=== PATIENT | female | born 1995 | race Caucasian/White ===

== ENCOUNTER 2024-05-27 07:40 | Inpatient (IN) ==
[2024-05-27] MEDS ORDERED: OXYTOCIN 30 UNITS/NSS 30 UNITS/500 ML BAG IV PRN (08:24)
[2024-05-27] MEDS ORDERED: LIDOCAINE 1% LOCAL 20 ML VIAL INFIL PRN (08:24)
[2024-05-27 09:00] LABS: Hematocrit (blood only) 36.8 % (37.0-47.0); Hemoglobin 12.5 g/dl (12.0-16.0); Mean Corpuscular Hemoglobin 30.6 pg (25.0-34.0); Mean Corpuscular Volume 90.2 fL (80.0-100.0); Mean Platelet Volume 8.7 fL (9.4-12.4); Platelet Count 281 K/uL (130-400); RDW Coefficient of Variation 13.1 % (11.5-14.5); Red Blood Count 4.08 M/uL (4.20-5.40); White Blood Count 9.15 K/ul (4.8-10.8)
[2024-05-27] MEDS ORDERED: SODIUM CHLORIDE 0.9% 1,000 ML IV PRN (09:07)
[2024-05-27] MEDS ORDERED: INSULIN REGULAR 250 UNITS in SODIUM CHLORIDE 0.9% 247.5 ML IV PRN (09:07)
[2024-05-27] MEDS ORDERED: DEXTROSE 50% 50 ML SYRINGE IV PRN (09:07)
--- NOTE | 2024-05-27 09:25 | History & Physical Report ---
Date of Service May 27, 2024 Assessment & Plan (1) Encounter for induction of labor: (2) Insulin controlled gestational diabetes mellitus (GDM) during : (3) Obesity affecting : (4) Multigravida: Plan Octavia is a 29 y/o female currently at 39/6 WGA with an JERSEY 05/28/24 as determined by LMP who is here for induction due to GDM and gHTN. Her was complicated by obesity, GDM on insulin and gHTN taking aspirin. Category 1 tracing; moderate FHT variability - Start pitocin - Consider amniotomy for progression of labor - Anesthesiology consulted for epidural if/when pt desires - BSG q1h - Monitor labor progress Admission and Anticipated Discharge Date Admission Date: May 27, 2024 History of Present Illness Primary Care Provider: NO PCP Octavia is a 29 y/o female currently at 39/6 WGA with an JERSEY 05/28/24 as determined by LMP who is here for induction due to GDM and gHTN. Her was complicated by obesity, GDM on insulin and gHTN taking aspirin. irregular contractions; regular movement; no fluid loss; no bloody show Had regular appointments with OB. H.5 (today) Hct: 36.8% (today) WBC: 9.15 (today) Plt: 281 (today) OB Labs: Blood Type AB Positive 10/17/23 Antibody Screen NEGATIVE 10/17/23 Hgb 12.5 g/dl (12.0-16.0) 03/04/24 Hct 36.2 % (37.0-47.0) L 03/04/24 MCV 86.5 fL (80.0-100.0) 10/17/23 Plt Count 425 K/uL (130-400) H 10/17/23 Rubella IgG Antibody Immune (Immune) 10/17/23 Treponema pallidum Ab Negative (Negative) 03/04/24 Hep Bs Antigen Negative (Negative) 10/17/23 Hepatitis C Antibody Negative (Negative) 10/17/23 HIV 1&2 Ab/P24 Ag 4thGn Negative (Negative) 10/17/23 Glucose 1 Hr 50 gm 134 mg/dl (70-130) H 12/16/23 OB Optional Labs: Chlamydia trachomatis RNA Not Detected (NotDetected) 10/17/23 Neisseria gonorrhoeae RNA Not Detected (NotDetected) 10/17/23 Labs Reviewed: cfdna-low risk--mln horizon 14-negative--mln Allergies Allergy/AdvReac Type Severity Reaction Status Date / Time cefdinir Allergy Mild Rash Verified 05/26/24 14:56 Penicillins Allergy Mild Rash Verified 05/26/24 14:56 Sulfa (Sulfonamide Allergy Unknown Rash Verified 05/26/24 14:56 Antibiotics) Home Medications Medication Instructions Recorded Confirmed Type vits no.124-ferrous fum 1 tab PO HS 05/27/24 05/27/24 History 27 mg iron-folic acid 800 mcg tablet ( Vitamin) Patient History Medical History (Updated 05/27/24 @ 09:40 by Jessika Abdullahi DO) Gestational hypertension Varicella vaccine Surgical History History of cholecystectomy Family History Grandmother (Maternal) Ovarian cancer Denies family history of Prostate cancer Myocardial infarction Breast cancer Colorectal cancer Social History Smoking Status: Never smoker Do You Dip or Chew Tobacco: No; Hx Alcohol Use: No Hx Substance Use: No Preferred Language: Macedonian Headmaster/Mistress Required: No Beliefs That Will Affect Care: None marital status: marital status details: Spouse Wood Rodriguez (30) [phone] Current Living Situation: Spouse and Family Current Living Situation Comment: , Son, 2 dogs current occupational status: employed current occupation: school counselor How many Children do You have: 1 Other Information That Helps Us Care for You: No Feels Safe at Home: Yes Safety Concerns: Feels Safe At This Time Review of Systems Denies fever, chills, sweats Denies shortness of breath, difficulty breathing, chest pain, palpitations, chest pressure. Denies breast pain. Notes vomiting this morning after coughing, has history of emesis/strong gag reflex. Pt also notes loose stool in last 2 days. Denies abdominal pain/intestinal cramping Denies dysuria. Denies headache or changes in vision. Physical Exam Physical Exam: General: Alert, oriented. No acute distress. Cardiac: Regular rate and rhythm, no murmurs/rubs/gallops. Respiratory: Clear to auscultation bilaterally a/p, no wheezes/rales/rhonchi. No increased work of breathing. Symmetrical chest rise. No respiratory distress. Abdomen: Gravid; Position: Vertex Pelvic: Dilation 3 cm; Effacement 50%; Station -[address] Vidales Lower Extremities: No lower extremity edema or swelling. No deep calf pain. Rojas's negative bilaterally Results & Data Vital Signs (Past 12 Hours) Vital Signs Temp Pulse Resp BP Pulse Ox 05/27/24 09:21 77 99 05/27/24 09:16 82 97 05/27/24 09:11 84 98 05/27/24 09:06 84 97 05/27/24 09:01 77 97 05/27/24 08:56 78 98 05/27/24 08:08 96 H 128/83 05/27/24 07:58 36.9 C 15 Monitoring External Monitor External FHT and external uterine monitors used Resident Activity Tracking Resident Involvement: Resident Care Provided Care Provided: OB Delivery
[2024-05-27] MEDS: LACTATED RINGER'S 1,000 ML IV PRN (09:39)
[2024-05-27] MEDS: OXYTOCIN 30 UNITS/NSS 30 UNITS/500 ML BAG IV PRN ×2 (09:43→22:57)
[2024-05-27] MEDS: DEXTROSE 5% 1,000 ML IV PRN (11:05)
[2024-05-27] MEDS ORDERED: diphenhydrAMINE 50 MG/ML VIAL IV PRN (15:39)
[2024-05-27] MEDS ORDERED: LIDOCAINE 2% MPF LOCAL 5 ML VIAL EPI PRN (15:39)
[2024-05-27] MEDS ORDERED: SODIUM CHLORIDE 0.9% PF INJ 10 ML VIAL EPI PRN (15:39)
[2024-05-27] MEDS ORDERED: NALBUPHINE HCL INJ 10 MG/ML AMP IV PRN (15:39)
[2024-05-27] MEDS ORDERED: NALOXONE HCL 0.4 MG/1 ML VIAL/CARP IV PRN (15:39)
[2024-05-27] MEDS ORDERED: BUPIVACAINE 0.25% PF 30 ML VIAL EPI PRN (15:39)
[2024-05-27] MEDS ORDERED: fentaNYL citrate PF 100 MCG/2 ML VIAL EPI PRN (15:39)
[2024-05-27] MEDS ORDERED: fentANYL 2 MCG/ML BUPIVacaine 0.125%-NSS 100ML BAG EPI PRN (15:39)
[2024-05-27] MEDS ORDERED: NALOXONE HCL 1 MG in SODIUM CHLORIDE 0.9% 1,000 ML IV PRN (15:39)
[2024-05-27] MEDS ORDERED: ePHEDrine sulfate 50 MG/ML AMP IV PRN (15:39)
[2024-05-27] MEDS ORDERED: ROPIVACAINE 0.5% PF 5 MG/ML 20 ML VIAL EPI PRN (15:39)
--- NOTE | 2024-05-27 15:39 | Anesthesiology Consultation ---
Date of Service May 27, 2024 Assessment & Plan Chart Review Chart Review: Acceptable Risk for Labor Epidural Consults Requested none History Height/Weight Height: 5 ft 7 in Weight: 110.677 kg Allergies Allergy/AdvReac Type Severity Reaction Status Date / Time cefdinir Allergy Mild Rash Verified 05/26/24 14:56 Penicillins Allergy Mild Rash Verified 05/26/24 14:56 Sulfa (Sulfonamide Allergy Unknown Rash Verified 05/26/24 14:56 Antibiotics) Medications Home Medications Medication Instructions Recorded Confirmed Last Taken vits no.124-ferrous fum 1 tab PO HS 05/27/24 05/27/24 1 Day Ago 27 mg iron-folic acid 800 mcg ~05/26/24 tablet ( Vitamin) Active Medications Generic Name Dose Route Start Last Admin Trade Name Freq PRN Reason Stop Dose Admin Lactated Ringer's 1,000 mls @ 125 mls/hr 05/27/24 08:24 05/27/24 15:25 Lr IV 05/28/24 08:23 999 mls/hr .Q8H PRN Infusion L&D Protocol Protocol Oxytocin 30 units in 500 mls @ 20 mls/hr 05/27/24 08:24 05/27/24 15:00 Pitocin 30 Units/Nss IV 05/29/24 08:23 1.2 units/hr .Q24H PRN 20 mls/hr Labor Induction/Augmentation Titration Protocol 1.2 UNITS/HR Dextrose 1,000 mls @ 100 mls/hr 05/27/24 09:07 05/27/24 11:05 D5w IV 06/26/24 09:06 100 mls/hr .Q10H PRN Administration BSG 180 or below Protocol Past Medical History Medical History (Updated 05/27/24 @ 09:40 by Jessika Abdullahi DO) Gestational hypertension Varicella vaccine Past Family History Family History Grandmother (Maternal) Ovarian cancer Denies family history of Prostate cancer Myocardial infarction Breast cancer Colorectal cancer Past Surgical History Surgical History History of cholecystectomy Social History Smoking Status: Never smoker Do You Dip or Chew Tobacco: No Hx Alcohol Use: No Hx Substance Use: No Physical Exam Vital Signs Last Vital Signs Temp 36.7 C 05/27/24 11:51 Pulse 72 05/27/24 15:29 Resp 17 05/27/24 11:51 BP 120/61 05/27/24 14:57 Pulse Ox 99 05/27/24 15:29 Testing Laboratory Results 05/27/24 08:37 05/27/24 05/27/24 05/27/24 15:31 14:30 13:28 POC Glucose 77 79 78 05/27/24 05/27/24 05/27/24 12:31 11:26 10:41 POC Glucose 79 76 64 L* 05/27/24 09:33 POC Glucose 73
[2024-05-27] MEDS: fentANYL 2 MCG/ML BUPIVacaine 0.125%-NSS 100ML BAG ONE (16:07)
[2024-05-27] MEDS: LIDOCAINE 2%/EPINEPHRINE 1:200,000 20 ML PF ONE (16:10)
[2024-05-27] MEDS: BUPIVACAINE 0.25% PF 30 ML VIAL ONE (16:15)
[2024-05-27] MEDS: ePHEDrine sulfate 50 MG/ML AMP ONE (16:16)
[2024-05-27] MEDS: BUPIVACAINE 0.25% PF 30 ML VIAL EPI STA (16:16)
[2024-05-27] MEDS: fentaNYL citrate PF 100 MCG/2 ML VIAL ONE (16:16)
[2024-05-27] MEDS: fentaNYL citrate PF 100 MCG/2 ML VIAL EPI STA (16:16)
[2024-05-27] MEDS: SODIUM CHLORIDE 0.9% PF INJ 10 ML VIAL ONE (16:16)
[2024-05-27] MEDS: SODIUM CHLORIDE 0.9% PF INJ 10 ML VIAL EPI STA (16:17)
[2024-05-27] MEDS: LIDOCAINE 2%/EPINEPHRINE 1:200,000 20 ML PF EPI STA (16:17)
[2024-05-27] MEDS: miSOPROStoL 200 MCG TAB PR ONE (22:20)
--- NOTE | 2024-05-27 22:26 | Delivery Summary ---
Vaginal Delivery Summary Date of Service May 27, 2024 Vaginal Delivery Summary and 1st Degree LAC Induction of labor for vaginal delivery gestational diabetes on insulin insulin protocol followed in labor and delivery Pitocin she received epidural and artificial rupture of membranes for clear fluid she progressed to fully be dilated pushing a baby in occiput anterior over the perineum mouth and then nares suction no nuchal cord fluid was clear gentle traction on the baby no ex cessive force easy delivery live vigorous male Cord clamped and cut cord blood obtained placenta removed with traction Pitocin started initially the uterus was somewhat poor in tone so 800 mcg of Cytotec was placed rectally tone improved after that QBL per nursing record [facility] Vaginal Delivery Charge Delivery Type Details: and 1st Degree LAC
[2024-05-27] MEDS ORDERED: BENZOCAINE 20% SPRY 85 APPLN/85 GM CAN EXT PRN (22:34)
[2024-05-27] MEDS ORDERED: bisacodyL 10 MG SUPP PR PRN (22:34)
[2024-05-27] MEDS ORDERED: HYDROCORTISONE ACETATE 25 MG SUPP PR PRN (22:34)
[2024-05-27] MEDS: DIPHTHER/TETAN/PERTUS Vaccine (Tdap, Adol/Adult) 0.5mL IM ONE (22:57)
[2024-05-27] MEDS ORDERED: ONDANSETRON INJ 2 MG/ML 2 ML VIAL IV PRN (23:05)
[2024-05-27] MEDS: ONDANSETRON INJ 2 MG/ML 2 ML VIAL ONE (23:10)
--- NOTE | 2024-05-28 00:09 | Anesthesia Procedure Note ---
Date of Service May 28, 2024 Anesthesia Post Epidural Note Vital Signs Vital Signs: Temp Pulse Resp BP Pulse Ox 36.9 C 82 16 116/60 87 L 05/27/24 21:35 05/28/24 00:06 05/27/24 23:51 05/28/24 00:06 05/27/24 22:10 Notes Mental Status: alert / awake / arousable and participated in evaluation Nausea / Vomiting: adequately controlled Pain: adequately controlled Airway Patency, RR, SpO2: stable & adequate BP & HR: stable & adequate Hydration State: stable & adequate Neuraxial Anesthesia: was administered and sensory block is resolving Anesthetic Complications: no major complications apparent Epidural: Removed without complications and With tip intact
--- NOTE | 2024-05-28 05:44 | Obstetrical Progress Note ---
Date of Service May 28, 2024 Assessment & Plan (1) Encounter for care and examination after delivery: (2) Insulin controlled gestational diabetes mellitus (GDM) during : (3) Obesity affecting : (4) Multigravida: Plan Pt is 29 yo post- day 1 s/p at 39w6d. complicated by GDM and gHTN. - Encourage breast feeding and ambulation - Pain control with tylenol and ibuprofen - Monitor BPs - Likely Discharge 05/29 Admission and Anticipated Discharge Date Admission Date: May 27, 2024 Supervising Physician Co-Signing Physician Notes Resident Physician Supervision Note: I was present with Dr. Abdullahi during the history and exam. I discussed the case with the resident and agree with the findings and plan as documented in the note. Any exceptions or clarifications are listed here: [None] Documented By: Bert Vidales MD, FACOG Subjective Pt is 29 yo post- day 1 s/p at 39w6d. complicated by GDM and gHTN. Ambulation:In room Voiding:voiding normally Passing gas: no BM: no Diet tolerance:regular diet Lochia:bloody, no clots Feeding type: breast Current pain level: 0 /10 improved with ibuprofen Resting comfortably this morning in NAD. Denies OWEN, CP, SOB, N/V/D, LE pain/swelling. Review of Systems Review of Systems: As per HPI Physical Exam Constitutional: WD/WN, vitals as above Respiratory: normal respiratory effort, lungs clear to auscultation Cardiovascular: RRR, no murmur, no edema Gastrointestinal (Abdomen): normal bowel sounds, soft, nontender, no hepatosplenomegaly Uterine fundus firm and at level of umbilicus Neurologic: PERRL, EOMI, accommodation nl, no face palsy, no dysarthria Moving all 4 extremities on command Psychiatric: A+Ox3, euthymic affect Results & Data Vital Signs (Past 12 Hours) Vital Signs Temp Pulse Pulse Resp BP BP Pulse Ox 05/28/24 02:25 36.5 C 63 16 111/66 97 05/28/24 00:48 36.7 C 66 16 120/71 96 05/28/24 00:21 36.8 C 18 05/28/24 00:21 67 105/59 L 05/28/24 00:06 82 116/60 05/27/24 23:51 16 05/27/24 23:51 83 105/55 L 05/27/24 23:36 86 102/55 L 05/27/24 23:21 16 05/27/24 23:21 76 114/54 L 05/27/24 23:06 18 05/27/24 23:06 113 H 140/67 05/27/24 22:51 18 05/27/24 22:51 99 H 149/64 H 05/27/24 22:37 16 05/27/24 22:37 123 H 160/66 H 05/27/24 22:21 20 05/27/24 22:21 80 127/73 05/27/24 22:10 97 H 87 L 05/27/24 22:05 85 91 05/27/24 22:02 84 124/81 05/27/24 21:47 78 129/78 05/27/24 21:35 18 05/27/24 21:35 36.9 C 18 05/27/24 21:32 86 123/76 05/27/24 21:29 86 98 05/27/24 21:02 68 125/67 05/27/24 20:48 68 122/70 05/27/24 20:32 55 L 99/53 L 05/27/24 20:29 52 L 97 05/27/24 20:17 50 L 98/55 L 05/27/24 19:47 72 114/53 L 05/27/24 19:32 70 128/59 L 05/27/24 19:29 71 98 05/27/24 19:17 89 115/61 05/27/24 19:02 36.7 C 16 05/27/24 18:47 69 121/65 05/27/24 18:31 74 118/78 05/27/24 18:29 74 100 05/27/24 18:16 56 L 113/61 05/27/24 18:01 52 L 112/60 05/27/24 17:46 36.7 C 60 16 111/58 L O2 Del Method 05/28/24 02:25 Room Air 05/28/24 00:48 Room Air 05/28/24 00:21 05/28/24 00:21 05/28/24 00:06 05/27/24 23:51 05/27/24 23:51 05/27/24 23:36 05/27/24 23:21 05/27/24 23:21 05/27/24 23:06 05/27/24 23:06 05/27/24 22:51 05/27/24 22:51 05/27/24 22:37 05/27/24 22:37 05/27/24 22:21 05/27/24 22:21 05/27/24 22:10 05/27/24 22:05 05/27/24 22:02 05/27/24 21:47 05/27/24 21:35 05/27/24 21:35 05/27/24 21:32 05/27/24 21:29 05/27/24 21:02 05/27/24 20:48 05/27/24 20:32 05/27/24 20:29 05/27/24 20:17 05/27/24 19:47 05/27/24 19:32 05/27/24 19:29 05/27/24 19:17 05/27/24 19:02 05/27/24 18:47 05/27/24 18:31 05/27/24 18:29 05/27/24 18:16 05/27/24 18:01 05/27/24 17:46 Resident Activity Tracking Resident Involvement: Resident Care Provided Care Provided: OB Delivery
[2024-05-28 06:50] LABS: Hematocrit (blood only) 32.1 % (37.0-47.0); Hemoglobin 11.1 g/dl (12.0-16.0); Mean Corpuscular Hemoglobin 30.8 pg (25.0-34.0); Mean Corpuscular Hgb Conc 34.6 g/dL (32.0-36.0); Mean Corpuscular Volume 89.2 fL (80.0-100.0); Mean Platelet Volume 8.9 fL (9.4-12.4); Platelet Count 260 K/uL (130-400); RDW Standard Deviation 42.5 fL (36.4-46.3); White Blood Count 12.93 K/ul (4.8-10.8)
[2024-05-28] MEDS: PRENATAL VITAMIN 1 TAB PO SCH (08:36)
[2024-05-28] MEDS: DOCUSATE SODIUM 100 MG CAP PO SCH (08:36)
[2024-05-28 15:48] VITALS: TEMP 98.1
[2024-05-28] MEDS: IBUPROFEN 600 MG TAB PO PRN (18:09)
[2024-05-28] MEDS: ACETAMINOPHEN 325 MG TAB PO PRN (20:24)
[2024-05-28] MEDS: bisacodyL 5 MG TABEC PO SCH (20:25)
--- NOTE | 2024-05-29 06:06 | Obstetrical Progress Note ---
Date of Service May 29, 2024 Assessment & Plan (1) Encounter for care and examination after delivery: (2) Insulin controlled gestational diabetes mellitus (GDM) during : (3) Obesity affecting : (4) Multigravida: Plan Pt is 29 yo post- day 2 s/p at 39w6d. complicated by GDM and gHTN. - Encourage breast feeding and ambulation - Pain control with tylenol and ibuprofen - Monitor BPs - Discharge today Admission and Anticipated Discharge Date Admission Date: May 27, 2024 Supervising Physician Co-Signing Physician Notes Resident Physician Supervision Note: I interviewed and examined the patient. Discussed with Dr. Abdullahi and agree with findings and plan as documented in the note. Any exceptions or clarifications are listed here: [ ] Documented By: Lovely Andres MD, FACOG Subjective Pt is 29 yo post- day 2 s/p at 39w6d. complicated by GDM and gHTN. Ambulation:In room Voiding:voiding normally Passing gas: yes BM: no Diet tolerance:regular diet Lochia:bloody, no clots Feeding type: breast Current pain level: 1-3 /10 improved with ibuprofen Resting comfortably this morning in NAD. Denies OWEN, CP, SOB, N/V/D, LE pain/swelling. Review of Systems Review of Systems: As per HPI Physical Exam Constitutional: WD/WN, vitals as above Respiratory: normal respiratory effort, lungs clear to auscultation Cardiovascular: RRR, no murmur, no edema Gastrointestinal (Abdomen): normal bowel sounds, soft, nontender, no hepatosplenomegaly Uterine fundus is firm and 1 cm below umbilicus Neurologic: PERRL, EOMI, accommodation nl, no face palsy, no dysarthria Psychiatric: A+Ox3, euthymic affect Results & Data Vital Signs (Past 12 Hours) Vital Signs Temp Pulse Resp BP Pulse Ox O2 Del Method 05/28/24 22:35 36.7 C 67 18 115/70 97 Room Air 05/28/24 20:10 36.7 C 72 18 118/66 98 Room Air Resident Activity Tracking Resident Involvement: Resident Care Provided Care Provided: OB Delivery
[2024-05-29 07:23] LABS: Hematocrit (blood only) 33.5 % (37.0-47.0); Hemoglobin 11.3 g/dl (12.0-16.0)
[2024-05-29 09:12] VITALS: BP 120/74; RESP 16; O2SAT 98
[2024-05-29 09:46] VITALS: PULSE 67
== END 2024-05-29 10:30 | disposition home or self-care (01) | DRG 807 ==
LOC: 4S1 07:40 → 4E2 05-28 01:08